=== PATIENT | female | born 1995 | race Caucasian/White ===

== ENCOUNTER 2019-08-13 22:31 | Observation (INO) ==
[2019-08-14] MEDS ORDERED: MOM Conc 10 ML UD.LIQ PO PRN (01:42)
[2019-08-14] MEDS ORDERED: *HR* LORazepam 1 MG TABLET PO PRN (01:42)
[2019-08-14] MEDS ORDERED: Mag Hydrox/Al Hydrox/Simeth 30 ML UDC PO PRN (01:42)
[2019-08-14] MEDS ORDERED: Ibuprofen 400 MG TABLET PO PRN (01:42)
[2019-08-14] MEDS ORDERED: traZODone 50 MG TABLET PO PRN (01:42)
[2019-08-14] MEDS ORDERED: hydrOXYzine pamoate 25 MG CAPSULE PO PRN (01:42)
[2019-08-14] MEDS ORDERED: *HR* LORazepam 2 MG/ML VIAL IM PRN (01:42)
[2019-08-14] MEDS ORDERED: Haloperidol Lactate 5 MG/ML VIAL IM PRN (01:42)
[2019-08-14] MEDS ORDERED: ARIPiprazole 10 MG TABLET PO SCH (09:00)
[2019-08-14 09:49] VITALS: BP 101/66
== END 2019-08-14 16:40 | disposition home or self-care (01) ==
LOC: EMEROOARM 22:31 → 1ANU 22:31
PROVIDERS: ADMIT Psychiatry & Neurology Psychiatry; ATTEND Psychiatry & Neurology Psychiatry

== ENCOUNTER 2019-12-04 15:01 | Observation (INO) ==
[2019-12-04] MEDS ORDERED: *HR* Promethazine 25 MG/ML VIAL IVP PRN (16:52)
[2019-12-04] MEDS ORDERED: Ondansetron 4 MG/2 ML VIAL IVP PRN (16:52)
[2019-12-04] MEDS ORDERED: Naloxone 0.4 MG/ML INJ IVP PRN (16:52)
[2019-12-04] MEDS ORDERED: traZODone 50 MG TABLET PO PRN (16:55)
[2019-12-04] MEDS ORDERED: *HR* LORazepam 2 MG/ML VIAL IVP PRN (16:58)
[2019-12-04] MEDS: 0.9 % Sodium Chloride 1,000 ML IVC SCH (18:09)
[2019-12-04] MEDS ORDERED: Acetaminophen 325 MG TABLET PO ONE (21:58)
[2019-12-04] MEDS ORDERED: hydrOXYzine pamoate 25 MG CAPSULE PO ONE (21:59)
[2019-12-05 04:47] LABS: Basophils % 0.7 %; Eosinophils # 0.1 K/mcL (0.0-0.6); Hematocrit 37.6 % (35.3-44.9); Hemoglobin 13.3 g/dL (11.5-15.4); Immature Granulocytes % 0.2 % (0-4); Lymphocytes # 1.4 K/mcL (0.6-4.6); Lymphocytes % 34.6 %; Mean Corpuscular HGB Conc 35.4 g/dL (31.6-35.5); Mean Corpuscular Hemoglobin 30.4 pg (28.0-33.3); Mean Platelet Volume 10.5 fL (9.4-12.4); Monocytes # 0.4 K/mcL (0.0-1.3); Neutrophils # 2.1 K/mcL (1.6-8.9); Platelet Count 191 K/mcL (140-400); Red Blood Count 4.37 M/mcL (3.82-4.97); Red Cell Distribution Width 11.9 % (11.5-14.5); Segmented Neutrophils % 52.5 %; White Blood Count 4.1 K/mcL (4.3-11.1)
[2019-12-05 05:06] LABS: BUN/Creatinine Ratio 11 (6-26); Blood Urea Nitrogen 8 mg/dL (6-20); Calcium 9.4 mg/dL (8.6-10.3); Carbon Dioxide 25 mEq/L (23-29); Chloride 109 mEq/L (98-107); Glucose 94 mg/dL (70-105); Magnesium 1.9 mg/dL (1.6-2.6); Osmolality,Calculated 288 (280-300); Phosphorous 4.8 mg/dL (2.7-4.5); Potassium 3.7 mEq/L (3.5-5.1); Sodium 140 mEq/L (136-145); eGFR For African Americans > 60 (> 60); eGFR For Non-African Americans > 60 (> 60)
[2019-12-05] MEDS ORDERED: *HR* Enoxaparin 40 MG/0.4 ML SYRINGE SQ SCH (06:00)
[2019-12-05] MEDS: 0.9 % Sodium Chloride 1,000 ML IVC SCH ×2 (06:06→15:24)
[2019-12-05] MEDS ORDERED: ARIPiprazole 10 MG TABLET PO SCH (09:00)
[2019-12-05 12:48] LABS: Vitamin B12 579 pg/mL (250-1100)
[2019-12-05 12:50] LABS: Folate > 22.3 ng/mL (3.0-16.0)
[2019-12-05 15:52] VITALS: BP 114/66
== END 2019-12-05 18:06 | disposition home or self-care (01) ==
LOC: 3BNU
PROVIDERS: ADMIT Internal Medicine; ATTEND Internal Medicine